=== PATIENT | male | born 1970 | race Caucasian/White ===

== ENCOUNTER 2017-04-12 21:17 | Emergency (ER) ==
[2017-04-12] MEDS ORDERED: SODIUM CHLORIDE 1,000 ML IV STA (21:18)
[2017-04-12] MEDS ORDERED: TORADOL IVP STA (21:18)
[2017-04-12 21:28] LABS: BASOPHILS # (AUTO) 0.1 K/uL (0-0.2); BASOPHILS % (AUTO) 0.4 % (0.0-3.0); EOSINOPHILS # (AUTO) 0.1 K/ul (0.0-0.7); HEMATOCRIT 41.8 % (42.0-52.0); HEMOGLOBIN 14.7 g/dl (14.0-18.0); IMMATURE GRANULOCYTE % (AUTO) 0.4 % (0.0-5.0); LYMPHOCYTES # (AUTO) 2.3 K/uL (0.60-3.4); LYMPHOCYTES % (AUTO) 18.3 (10.0-50.0); MEAN CORPUSCULAR HEMOGLOBIN 29.1 pg (27.0-31.0); MEAN CORPUSCULAR HGB CONC 35.2 (31.8-35.4); MEAN CORPUSCULAR VOLUME 82.8 fl (80.0-94.0); MONOCYTES # (AUTO) 0.8 K/uL (0.4-2.0); MONOCYTES % (AUTO) 6.5 (0-10); NEUTROPHILS # (AUTO) 9.1 K/ul (2.0-6.9); NEUTROPHILS % (AUTO) 73.4; PLATELET COUNT 210 10^3/uL (140-440); RED BLOOD COUNT 5.05 10^6/ul (4.70-6.10); WHITE BLOOD COUNT 12.44 K/ul (4.2-10.2)
[2017-04-12 21:30] VITALS: TEMP 99.6; BMI 33.3
[2017-04-12 21:48] LABS: ALBUMIN 4.3 g/dL (3.4-5.0); ALBUMIN/GLOBULIN RATIO 1.48; ANION GAP 17.1; BILIRUBIN,TOTAL 0.54 mg/dL (0.00-1.20); BUN/CREATININE RATIO 20.75; CALCIUM 9.4 mg/dL (8.2-10.2); CREATININE 1.06 mg/dL (0.60-1.10); POTASSIUM 4.1 mmol/L (3.5-5.1); TOTAL PROTEIN 7.2 g/dL (6.4-8.2)
--- NOTE | 2017-04-12 21:48 | CT ---
EXAM: CT scan abdomen pelvis without contrast HISTORY: Right flank pain COMPARISON: None. FINDINGS: Contiguous axial images obtained from lung bases to the symphysis pubis without contrast utilizing 3-mm collimation. Sagittal and coronal reconstructions were imaged and reviewed. The visu alized lung bases are clear. Fatty infiltration is noted throughout the liver. The gallbladder is fluid filled without cholelithiasis. The pancreas spleen and adrenal glands have normal unenhanced CT appearance. atherosclerotic changes are seen involving abdominal aorta without aneurysm formatio n.. The left kidneys morphologically normal. There is right-sided hydronephrosis hydroureter with perinephric and periureteral stranding secondary to a 2 mm calculus at the right ureterovesicle junc tion. The prostate gland is normal in size. There is no free fluid. There is a normal appendix. There is an umbilical hernia containing only fat. IMPRESSION: Right-sided hydronephrosis and hydroureter secondary to a 2 mm distal right ureteral calculus. Fatty liver. Normal appendix.
[2017-04-12] MEDS ORDERED: FLOMAX PO STA (21:50)
[2017-04-12 21:51] LABS: BILIRUBIN,URINE Negative (NEGATIVE); KETONES,URINE Negative (NEGATIVE); LEUKOCYTE ESTERASE ,URINE Negative (NEGATIVE); NITRITE,URINE Negative (NEGATIVE); PH,URINE 5.5 (5-9); PROTEIN,URINE Negative (NEGATIVE); URINE, BLOOD 2+ (NEGATIVE)
--- NOTE | 2017-04-12 21:53 | ED.PDOC ---
General ED Provider: Dr. BRITTANY ZAMORANO-ER Chief Complaint: Abdominal Pain Stated Complaint: im hurting --its doing down into my testicle Time Seen by Physician: 21:20 Mode of Arrival: Walk-In Information Source: Patient Exam Limitations: No limitations Primary Care Provider: BRITTANY ZAMORANO Nursing and Triage Documentation Reviewed and Agree: Yes GI Complaint Exam - Abdominal Pain Complaint/Exam Onset: Gradual Duration: several hours Symptoms Are: Still present Timing: Constant Initial Severity: Mild Current Severity: Moderate Location of Pain: Discrete, RLQ Radiates To: Reports: Back, Flank Character: Reports: Dull, Aching Aggravating: Reports: None Alleviating: Reports: None Associated Signs and Symptoms: Reports: Back pain, Nausea. Denies: Diaphoresis , Fever, Cough, Chest pain, Dizziness, Constipation, Blood in stool, Dysuria, Urinary frequency, Decreased urine output, Decreased appetite, Discharge, Vomiting, Diarrhea, Decreased activity AAA Risk Factors: Reports: None Cardiac Risk Factors: Reports: None Testicular Torsion Risk Factors: Reports: None Surgical Obstruction Risk Factors: Reports: None Related Surgical History: Reports: None Abdominal Findings: Present: None Differential Diagnoses: Appendicitis, Ureteral Stone Review of Systems - Review Of Systems Constitutional: Reports: No symptoms, Chills, Fever Eyes: Reports: No symptoms Ears, Nose, Mouth, Throat: Reports: No symptoms Respiratory: Reports: No symptoms Cardiac: Reports: No symptoms GI: Reports: Abdominal pain, Nausea : Reports: Flank pain, Pain Musculoskeletal: Reports: No symptoms, Back pain Skin: Reports: No symptoms Neurological: Reports: No symptoms Endocrine: Reports: No symptoms Hematologic/Lymphatic: Reports: No symptoms All Other Systems: Reviewed and Negative Past Medical History - Past Medical History Previously Healthy: Yes Endocrine: Reports: Unknown Cardiovascular: Reports: Unknown Respiratory: Reports: Unknown Hematological: Reports: Unknown Gastrointestinal: Reports: Unknown Genitourinary: Reports: Unknown Neuro/Psych: Reports: Unknown Musculoskeletal: Reports: Unknown Cancer: Reports: Unknown - Surgical History General Surgical History: Reports: Unknown - Family History Family History: Reports: Unknown - Social History Smoking Status: Never smoker Hx Substance Use: No Alcohol Screening: None Lives: With family Physical Exam - Physical Exam Appearance: Well-appearing, No pain distress, Well-nourished Eyes: CHLOE, EOMI, Conjunctiva clear ENT: Ears normal, Nose normal, Oropharynx normal Neck: Supple Respiratory: Airway patent, Breath sounds clear, Breath sounds equal, Respirations nonlabored Cardiovascular: RRR, Pulses normal, No rub, No murmur GI/: Soft, Nontender, No masses, Bowel sounds normal, No Organomegaly Musculoskeletal: Normal strength, ROM intact, No edema, No calf tenderness Skin: Warm, Dry, Normal color Neurological: Sensation intact, Motor intact, Reflexes intact, Cranial nerves intact, Alert, Oriented Psychiatric: Affect appropriate Interpretation - Radiology Interpretation Radiology Interpretation By: Radiologist Radiology Results: Positive Exam Interpreted: CT Scan Re-Evaluation - Re-Evaluation Time of Re-Evaluation: 21:53 Status: Improved Vital Signs Stable: Yes Pain Level: 1 Appearance: NAD Lungs: Clear Skin: Warm and Dry Neuro: Alert and Oriented X3 CV: RRR Critical Care Note - Critical Care Note Total Time (mins): 0 Course - Course Hematology/Chemistry: 04/12/17 21:25 Orders, Labs, Meds: Lab Review 04/12/17 21:25 WBC 12.44 H RBC 5.05 Hgb 14.7 Hct 41.8 L MCV 82.8 MCH 29.1 MCHC 35.2 RDW Coeff of Stuart 12.8 Plt Count 210 Immature Gran % (Auto) 0.4 Neut % (Auto) 73.4 Lymph % (Auto) 18.3 [place] % (Auto) 6.5 Eos % (Auto) 1.0 Baso % (Auto) 0.4 Immature Gran # (Auto) 0.1 Neut # 9.1 H Lymph # 2.3 Pitt # 0.8 Eos # 0.1 Baso # 0.1 Orders Category Date Time Status ED IV/MEDIPORT/POWERPORT .ONCE EMERGENCY 04/12/17 21:18 Active AMYLASE Stat LAB 04/12/17 21:25 Completed CBC W/ AUTO DIFF Stat LAB 04/12/17 21:25 Completed COMPREHENSIVE METABOLIC PANEL Stat LAB 04/12/17 21:25 Completed ESR Stat LAB 04/12/17 21:25 Received LIPASE Stat LAB 04/12/17 21:25 Completed URINALYSIS C & S IF INDICATED Stat LAB 04/12/17 21:46 Ordered 0.9 % Sodium Chloride [Saline Flush] MEDS 04/12/17 21:18 Ordered 1 syr IVF PRN PRN Ketorolac Tromethamine [Toradol] MEDS 04/12/17 21:18 Discontinued 30 mg IVP ONCE STA Sodium Chloride 0.9% [Sodium Chloride] 1,000 ml MEDS 04/12/17 21:18 Active IV 100 mls/hr Tamsulosin HCl [Flomax] MEDS 04/12/17 21:50 Stat 0.4 mg PO ONCE STA CT ABDOMEN/PELVIS WO CONTRAST Stat RADS 04/12/17 21:18 Completed Medications Generic Name Dose Route Start Last Admin Trade Name Freq PRN Reason Stop Dose Admin Sodium Chloride 1,000 mls @ 100 mls/hr 04/12/17 21:18 04/12/17 21:41 Sodium Chloride IV 04/13/17 07:17 100 mls/hr .Q10H STA Administration Sodium Chloride 1 syr 04/12/17 21:18 04/12/17 21:46 Saline Flush IVF 1 syr PRN PRN Administration To flush IV Discontinued Medications Generic Name Dose Route Start Last Admin Trade Name Freq PRN Reason Stop Dose Admin Ketorolac Tromethamine 30 mg 04/12/17 21:18 04/12/17 21:44 Toradol IVP 04/12/17 21:19 30 mg ONCE STA Administration Vital Signs: Temp Pulse Resp BP Pulse Ox 04/12/17 21:18 99.6 F 71 18 188/91 H 97 Departure - Departure Time of Disposition: 21:53 Disposition: HOME SELF-CARE Discharge Problem: Calculus of ureter Instructions: Kidney Stones (ED), Renal Colic (ED), How to Strain Your Urine ( ED) Condition: Good Pt referred to PMD for follow-up: Yes Additional Instructions: norco 7.5mg q 4hrs prn pain #15--cipro 500mg bid x 5daysy--flomax 0.4mg q daiy # 2--strain all urine--bring stone in for analysis Allergies/Adverse Reactions: Allergies Penicillins Adverse Reaction (Verified 04/12/17 21:51) Home Medications: Ambulatory Orders Cetirizine HCl [Zyrtec] 04/12/17
[2017-04-12 21:56] LABS: ADD URINE MICROSCOPIC YES
[2017-04-12] MEDS ORDERED: CIPRO PO STA (21:56)
[2017-04-12 21:58] LABS: ERYTHROCYTE SEDIMENTATION RATE 10 mm/hr (0-15); ESR INTERNAL QC INTERNAL QC VALID
[2017-04-12 22:34] VITALS: BP 137/80
== END 2017-04-12 22:36 | disposition home or self-care (01) ==
LOC: ED 21:17
DX: N20.1 Calculus of ureter (principal)
CPT/HCPCS: 36415; 80053; 81001; 82150; 83690; 85025; 85651; 96361; 96374; 99283